=== PATIENT | female | born 1965 | race Caucasian/White ===

== ENCOUNTER 2017-10-26 10:00 | Outpatient (RCR) | payer OTHER, SELFPAY ==
--- NOTE | 2017-10-19 15:06 | HP.PTEVAL_ITS ---
Patient's Visit Information DIANNA SENIOR is a 52 year old F referred to Physical Therapy by Irving Claudio with a diagnosis of Bilateral lateral epicondylitis and postural imbalance. Date of Evaluation: 10/19/17 Physical Therapist: Ashish Eagle - Visit Plan Frequency: 1-2x /Week Duration: 10 weeks Plan: Start with DFM to bilateral epicondyles, eccentric wrist extension, wrist extensor stretching, rhomboid/middle trapezius strengthening, pec stretching. May use US techniques to reduce inflammation. - Subjective Subjective: Pt. is here today for her initial evaluation with diagnosis of bilateral lateral epicondalitis and postural imbalance. 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 Pt. reports no mechanism of injury. She reports having R elbow pain for ~3-4 years, but L elbow started ~3 weeks ago. She thinks that her L elbow may have started after painting a room in her house 3-4 weeks ago. Pt. reports not completing any exercises, except a few days she trialled her exercises given to her by her physicain. Pt. reports being tender to touch, increased pain with typing and with lifting. Pt. reports only decreased pain is with rest. Pt. does not report increased pain while sleeping, but does have slight difficuly falling asleep. She denies N/T and has not had any imaging. Pt. is hopeful to reduce symptoms in order to get back to all work and recreational activities without limitations. - Pain L elbow Pain Intensity (Out of 10): 4 Pain Intensity Range: 2, 6 R elbow Pain Intensity (Out of 10): 2 Pain Intensity Range: 1, 3 - Objective POSTURE: Pt. has slight FH positioning with rounded shoulders. Pt. is able to improve with VC/TCing. Pt. has normal lumbar lordosis in stance. B shoulders slightly internally rotated. PALPATION: Pt. has increased tenderness at bilateral lateral epicondyles, L worse than R. pt. has no ulnar groove pain. NO pain at UCL. Pt. has visible edema or increased heat. NEUROLOGICAL: Pt. has normal sensation to light and sharp touch of bilateral uEs. Pt. denies N/T. Pt. has 2+ bilateral biceps and triceps DTR. Pt. has no upper limb tension noted bilaterally. ROM: PT. has full shoulder and elbow ROM bilaterally wthout increase in symptoms. CERVICAL- flexion min loss mild increase NW at CT junction , ext nil/min loss NE, rotation min/nil loss NE, SB min/nil loss NE. Pt. has increased symptoms with wrist active extension and with passive wrist flexion. MMT: RUE- wrist- ext 5/5 mild increase NW, flexion 5/5; elbow- 5/5 througout NE , shoulder- flexon 5/5, ext 5/5, abd 4+/5, ER 4+/5, IR 5/5. LUE- wrist- ext 4+/ 5 increase NW, flexion 5/5; elbow 5/5 throughout without increase in symptoms; shoulder- flexion 5/5, abd 5-/5, ext 5/5, ER 4+/5, IR 5/5. Pt. has decreased mid trap/rhomboid strength. - Goals Goal 1:: Pt. to be I with HEP. Goal Time Frame: 4-6 Weeks Goal 2:: Pt. to have decrease pain in B elbows to 0-1/10 with all typing, lifting and work related activities. Goal Time Frame: 4-6 Weeks Goal 3:: Pt. to increased strength of bilateral mid trap and rhomboids to increase posture in sitting and standing. Goal Time Frame: 4-6 Weeks Goal 4:: Pt. to have increased wrist extensor strength by 1/2 grade bilaterally. Goal Time Frame: 4-6 Weeks - Rehabilitation Potential Physical Therapy Diagnosis: Pt. has signs and symptoms consistent with bilateral lateral epicondylitis. Pt. has poor posture, crossed pattern with weakness in scpaular musculature and tigtness in pec/chest and suboccipitals. Pt. would benefit from PT to increase wrist extensor strength, decrease pain, and increase postural strength. Rehabilitation Potential: Good - Anticipated Interventions Patient/Client Instruction: Educate patient on: Condition, Plan of Care, Risk Factors, Benefits of Fitness Program For the Purpose of:: To improve safety, To improve health and function, To foster healthy habits, To improve decision making, To facilitate caregiver knowledge, To improve self management, To prevent re-injury Therapeutic Exercise to Include: Strength training, Power training, Postural training, Flexibilty training, Passive ROM, Active ROM, Scapular Strength/ Stabilization For the Purpose of:: To decrease pain, To increase ROM, To improve nutrient delivery to tissue, To increase oxygenation perfusion, To improve muscle performance and motor function, To improve health of tissue, To decrease soft tissue restriction, To increase flexibility/ROM Ultrasound (thermal/non thermal): Yes For the Purpose of:: To decrease pain, To decrease swelling/inflammation, To increase ROM Thank you for the opportunity to evaluate your patient. For Medicare and Medicare HMO plans, please review the plan of care and approve it. It will need to be FAXED BACK to us at [phone] for Medicare purposes. Please let me know if there are questions or concerns regarding this plan of care. Physician Signature: Date:
--- NOTE | 2017-10-26 10:00 | DT_ITS ---
This patient was seen during an EMR downtime October 23, 2017 - October 30, 2017. This patient may have a combination of paper and electronic documentation or all paper documentation. All documentation is viewable within the e-chart portion of [employer] for each patient visit.
--- NOTE | 2018-03-01 11:42 | HP.PT.NRP ---
HP - Discharge Summary (1) - Patient Information DIANNA SENIOR was seen in my office for initial evaluation on 10/19/17. The following Plan of Care was established for this patient: Initial Frequency: 1-2x /Week Initial Duration: 10 weeks - Anticipated Interventions Patient/Client Instruction: Educate patient on: Condition, Plan of Care, Risk Factors, Benefits of Fitness Program For the Purpose of:: To improve safety, To improve health and function, To foster healthy habits, To improve decision making, To facilitate caregiver knowledge, To improve self management, To prevent re-injury Therapeutic Exercise to Include: Strength training, Power training, Postural training, Flexibilty training, Passive ROM, Active ROM, Scapular Strength/Stabilization For the Purpose of:: To decrease pain, To increase ROM, To improve nutrient delivery to tissue, To increase oxygenation perfusion, To improve muscle performance and motor function, To improve health of tissue, To decrease soft tissue restriction, To increase flexibility/ROM Ultrasound (thermal/non thermal): Yes For the Purpose of:: To decrease pain, To decrease swelling/inflammation, To increase ROM This patient was last seen in our office 10/26/17. Pertinent comments regarding their Physical therapy will appear below: Pt. was seen for her B elbow pain. Pt. was treated with postural strengtheing, eccentric wrist strengthening, modalities and stretching. Pt. was seen for 4 visits, but then was [place]in[place] out [place] the [place] 6 [place]. Pt. was having positive gains. Pt. was educated on proper stretching and exericses for her HEP. Pt. will be DC from PT at this point in time. At this point I will be discontinuing this patient from physical therapy. I would be happy to see this patient again in the future if found appropriate by the physician. Thank you! Ashish Eagle
== END 2017-10-26 19:00 | disposition home or self-care (01) ==
LOC: PT 10:00
PROVIDERS: Family Provider Family Medicine; PCP Family Medicine; Visit Provider Family Medicine
DX: M77.12 Lateral epicondylitis, left elbow (principal); M77.11 Lateral epicondylitis, right elbow; R29.3 Abnormal posture
CPT/HCPCS: 97035; 97110; 97162

== ENCOUNTER → 2018-03-23 09:25 | Outpatient (CLI) | payer OTHER, SELFPAY ==
[2018-03-23 12:24] LABS: Absolute Lymphocyte Count 1.31 X10^3/ul (0.83-4.51); Absolute Neutrophil Count 3.8 X10^3/uL (2.0-7.7); Basophil# 0.02 X10^3/uL; Basophil% 0.3 % (0-1); Eosinophil# 0.13 X10^3/uL; Eosinophils% 2.3 % (0-5); Hematocrit 39.6 % (37-47); Hemoglobin 13.5 g/dl (12.0-15.0); Lymphocyte # 1.31 X10^3/ul (4.0); Lymphocyte % 22.9 % (19-41); Mean Corp Hgb Conc 34.1 g/gl (32-36); Mean Corpuscular Hgb 32.8 pg (27.0-32.0); Mean Corpuscular Volume 96.1 fL (81-99); Mean Platelet Vol. 10.2 fl (6.2-12.0); Monocyte# 0.43 X10^3/uL; Monocyte% 7.5 % (0-10); Neutrophil # 3.82 X10^3/uL (2.7-7.7); Neutrophil % 66.8 % (47-70); Platelet Count 319 K/mm3 (150-450); RBC Distribution Width CV 12.3 % (11.6-14.6); RBC Distribution Width SD 42.1 fl (35.1-43.9); Red Blood Count 4.12 M/mm3 (4.2-5.4); White Blood Count 5.7 K/mm3 (4.4-11.0)
[2018-03-23 12:38] LABS: POSITIVE COUNT NO; POSITIVE DIFFERENTIAL NO; POSITIVE MORPHOLOGY NO
[2018-03-23 12:51] LABS: AST(SGOT) 11 U/L (15-37); Alanine Aminotransfer ALT/SGPT 21 U/L (13-56); Albumin, Serum 3.8 g/dL (3.2-5.0); Alkaline Phosphatase 59 U/L (45-117); Anion Gap 8 (5-15); BUN 12 mg/dL (7-18); BUN/Creat Ratio 13.8 RATIO (10-20); Calcium,Total 8.5 mg/dL (8.5-10.1); Chloride 105 mmol/L (98-107); Cholesterol 194 mg/dL (200); Creatinine, Serum 0.87 mg/dL (0.55-1.02); EST Glomerular Filtration Rate 73 mL/min (>60); Est Glom Filt Rate - Afr Amer 88 mL/min (>60); Globulin 3.8 g/dL (2.2-4.2); Glucose 93 mg/dL (74-106); High Density Lipoprotein 67 mg/dL; Potassium 4.1 mmol/L (3.5-5.1); Protein, Total 7.6 g/dL (6.4-8.2); Sodium Level 138 mmol/L (136-145); Thyroid Stim Hormone (TSH) 0.86 uIU/mL (0.358-3.74); Triglycerides 68 mg/dL; Very Low Density Lipoprotein 14 mg/dL (5-40)
== END ==
PROVIDERS: Family Provider Family Medicine; PCP Family Medicine; Visit Provider Family Medicine
DX: Z00.00 Encounter for general adult medical examination without abnormal findings (principal); G44.229 Chronic tension-type headache, not intractable; Z86.32 Personal history of gestational diabetes
CPT/HCPCS: 36415; 80053; 80061; 84443; 85025

== ENCOUNTER 2018-04-04 07:26 | Day surgery (SDC) | payer OTHER, SELFPAY ==
[2018-04-04 07:50] VITALS: BP 127/93; PULSE 74; RESP 14; TEMP 37.3; O2SAT 99; BMI 25.4
[2018-04-04 07:55] LABS: Internal QC Validated? YES +Cl - CLEAR BKGD; Pregnancy, Urine Negative Negative
--- NOTE | 2018-04-04 08:26 | H&P.OPEN ---
History of Present Illness Date of Admission: 04/04/18 The patient is a 53 year old F presents for screening colonoscopy. Patient admits to bowel movements daily denies any blood. Denies any chronic abdominal pain. Denies any family history of colon cancer. Denies previous colonoscopy Past Medical/Surgical History - Planned Operation Planned Operative Procedure/s: colonoscopy Date of Operative Procedure: 03/19/18 Permit Signed: No S.O.S: No Is This Patient Having a Total Joint: No - Previous Hospitalizations/Surgeries HX Hospitalizations: Yes HX of Surgeries: wisdom teeth extraction. colonoscopy 2018 Any Problems With Anesthesia: No You/Your Family Experience Fever (Hyperthermia) With Anes: No Cholinesterase deficiency: No - Cardiovascular Hx Chest Pain within Last 2 months: No Hx of Irregular Heartbeat and/or Afib: No Hx Heart Attack: No Hx Congestive Heart Failure: No Hx Rheumatic Fever: No Hx Hypertension: No Pacemaker Form Completed by Physician and on Chart: No Hx Cardiac Catheterization: No Hx Cardiac Surgery/Stents/Etc.: No Hx Stress Test: No HX Edema: No Hx Pain in Legs when Walking/Leg Cramps: No - Respiratory Chronic Cough: No HX of Shortness of Breath: No Hoarseness: No Hx Chronic Obstructive Pulmonary Disease (COPD): No Hx Asthma: No Hx Emphysema: No Hx Sleep Apnea: No Hx Oxygen Use at Home: No Hx Respiratory Tract Infection/Cold (presently): No Do You Snore Loudly (louder than talking or can be heard): No Do You Often Feel Tired/ Fatigued/ Sleepy Dring Daytime?: No Has Anyone Observed You Stop Breathing During Sleep?: No Result (for STOP score): Negative Hx Smoking: Yes - quit 25yrs ago Smoking Status: Former smoker - Gastrointestinal Hx Gastroesophageal Reflux: No Hx Gastrointestinal Disorders: No Hx Gastrointestinal Bleed: No Hx Ulcer: No Hx Hiatal Hernia: No Difficulty Chewing/Swallowing: No Recent Onset of Swallowing Problems: No Special diet followed at home: No Hx Unplanned Weight Loss of 20#: No HX Unplanned Weight Gain of 20#: No - Neurological Hx Seizures: No HX Syncope/Blackout Spells/Unconsciousness: No Hx CVA/Stroke: No Hx Transient Ischemic Attacks (TIA): No Hx Multiple Sclerosis: No Hx Parkinson's Disease: No Hx Head/Neck Injury: No Hx Headaches: Yes - tension RICHARDSON x6mos Hx Back Injury/Pain: No Recent Onset of Speech Difficulty: No Restless Legs: No - Blood Disorder Hx Leukemia: No Bleeding Tendencies: No Hx Deep Vein Thrombosis: No Hx High Cholesterol: No Blood Transmitted Disease: No Hx Hepatitis: No Hx Cirrhosis: No Hx Anemia: No Hx Blood Disorders: No - Reproduction : No Are You Post Menopause: No - Genitourinary Hx Renal Disease: No Hx Dialysis: No - Musculoskeletal Hx Arthritis: No Hx Rheumatoid Arthritis: No Hx Gout: No Recent Onset of an Orthopedic Problem: No - Endocrine Hx Diabetes: No Thyroid Disease: No Hx Steroid Therapy: Yes - prednisone tablets 02/2018 - Psycho/Social Hx Substance Use: No Hx Alcohol Use: No Hx Anxiety: No Hx Depression: No Mental Illness: No Hx Dementia: No - Miscellaneous Hx Cancer: No Recent Exposure to Contagious Disease: No Active MRSA: No Hx of C-Diff: No Any Loose Teeth: No Additional information pertinent to anesthesia:: none Allergies No Known Allergies Allergy (Verified 04/04/18 07:49) - Discharge Is Pt Admitted From a [facility], or a Assisted: No Who Depends On You At Home: lives with Who Could Help: After D/C, Where Do you Plan to Go: Return Home - Physical Exam General: Alert, Oriented x3, Cooperative, No apparent distress HEENT: Atraumatic Lungs: Normal air movement Cardiovascular: Regular rate Abdomen: Soft, Non Tender - No peritoneal signs, Non-Distended Extremities: No clubbing, No cyanosis, No edema Neurological: Cranial nerves II-XII grossly intact Psych/Mental Status: Normal Affect Vital Signs Temp Pulse Resp BP Pulse Ox 99.1 F 74 14 127/93 H 99 04/04/18 07:50 04/04/18 07:50 04/04/18 07:50 04/04/18 07:50 04/04/18 07:50 Oxygen Delivery Method Room Air Weight: 167 lb 8.821 oz Body Mass Index (BMI) 25.4 Laboratory Tests Past 24 Hrs 04/04/18 07:38 Urine Test Negative Assessment/Plan 53-year-old female for screening colonoscopy Surgery Risks - Colonoscopy I discussed with the patient the risks of the procedure: Yes Risks Include but are not Limited To: Risks include but are not limited to: Bleeding, perforation requiring further surgery, inability to complete colonoscopy requiring barium enema. Patient had no further questions at this time
--- NOTE | 2018-04-04 08:30 | COLBX_PTH ---
PATIENT: DIANNA SENIOR LOC: EN U#:[id number] AGE/SX: 53/F ROOM: RE04/04/[address]: Dr. Ariane Ren MD : 1965 BED: DIS: 04/04/2018 SPEC #: [id number] RECD: 04/04/18 11:33 STATUS: VANESSA GRUPO #: [id number] AVTAR: 04/04/18 08:[address]: Ariane Ren DEPT: SURGICAL PATHOLOGY RECD BY: Tree Reynolds ENTERED: 04/04/18 12:50 SP TYPE: COLON BX OTHR DR: MD Dr. Angelica Marquez MD Tissues: Cecum, NOS Procedures: Surgery Specimen Level IV HEADER OPERATION: Colonoscopy (MAC) PRE-OP DIAGNOSIS: Screening TISSUE SUBMITTED: Cecal polyp biopsy MICROSCOPIC DIAGNOSIS Cecal polyp, biopsy: Fragments of hyperplastic polyp. Mild melanosis coli. AM:demetri 11/15/18 MICROSCOPIC DESCRIPTION Slides are reviewed. GROSS DESCRIPTION Received is one container labeled with the patient name and designated cecal polyp biopsy. The specimen consists of multiple irregular fragments of light arteaga soft tissue that in aggregate measure 1.5 x 0.5 x 0.1 cm. The specimen is totally submitted in one cassette. / SJ:sp 04/04/18 TC: 5 CPT: 50587
[2018-04-04 09:05] VITALS: BP 127/93; BP 136/86; PULSE 82; RESP 16; TEMP 36.8; O2SAT 100
--- NOTE | 2018-04-04 09:08 | OP.ENDO_ITS ---
Patient Name: Isaura Ballesteros Procedure Date: 04/04/2018 8:25 AM Date of : 1965 Age: 53 Procedure: Colonoscopy Indications: Screening for colorectal malignant neoplasm Providers: Ariane Ren MD Referring MD: Ariane Ren MD Medicines: Monitored Anesthesia Care Patient Profile: This is a 53 year old female. Last Colonoscopy: none. The patient's first colonoscopy is today. Complications: No immediate complications. Procedure: Pre-Anesthesia Assessment: - Prior to the procedure, a History and Physical was performed, and patient medications and allergies were reviewed. The patient's tolerance of previous anesthesia was also reviewed. The risks and benefits of the procedure and the sedation options and risks were discussed with the patient. All questions were answered, and informed consent was obtained. Prior Anticoagulants: The patient has taken no previous anticoagulant or antiplatelet agents. ASA Grade Assessment: II - A patient with mild systemic disease. After reviewing the risks and benefits, the patient was deemed in satisfactory condition to undergo the procedure. After I obtained informed consent, the scope was passed under direct vision. Throughout the procedure, the patient's blood pressure, pulse, and oxygen saturations were monitored continuously. The Colonoscope was introduced through the anus and advanced to the cecum, identified by the appendiceal orifice, ileocecal valve and palpation. The colonoscopy was performed without difficulty. The patient tolerated the procedure well. The quality of the bowel preparation was good. Scope In: 8:35:41 AM Scope Withdrawal Time 0 hours 16 minutes 16 seconds Scope Out: 9:02:11 AM Total Procedure Duration Time 0 hours 26 minutes 30 seconds Findings: The perianal and digital rectal examinations were normal. A 4 to 7 mm polyp was found in the cecum. The polyp was sessile. The polyp was removed with a cold biopsy forceps. Resection and retrieval were complete. The exam was otherwise without abnormality on direct and retroflexion views. Impression: - One 4 to 7 mm polyp in the cecum, removed with a cold biopsy forceps. Resected and retrieved. - The examination was otherwise normal on direct and retroflexion views. Recommendation: - Discharge patient to home. - Continue present medications. - Await pathology results. - Repeat colonoscopy in 3 - 5 years for surveillance based on pathology results. Procedure Code(s): --- Professional --- 50672, Colonoscopy, flexible; with biopsy, single or multiple Diagnosis Code(s): --- Professional --- Z12.11, Encounter for screening for malignant neoplasm of colon D12.0, Benign neoplasm of cecum CPT copyright 2017 [employer]. All rights reserved. The codes documented in this report are preliminary and upon shuttle filler review may be revised to meet current compliance requirements. MD Ariane Guerrero MD 04/04/2018 9:07:57 AM This report has been signed electronically. Number of Addenda: 0 Note Initiated On: 04/04/2018 8:25 AM
[2018-04-04 09:10] VITALS: BP 127/93; BP 138/87; PULSE 71; RESP 16; O2SAT 100
[2018-04-04 09:15] VITALS: BP 127/93; BP 139/90; PULSE 66; RESP 16; O2SAT 100
[2018-04-04 09:20] VITALS: BP 120/82; BP 127/93; PULSE 55; RESP 16; TEMP 36.6; O2SAT 100
[2018-04-04 10:03] VITALS: BP 127/93
== END 2018-04-04 10:04 | disposition home or self-care (01) ==
LOC: EN 07:26 → AC 07:27
PROVIDERS: Anesthesiology; Family Provider Family Medicine; PCP Family Medicine; Referring Provider Surgery; Visit Provider Surgery
PROC: 0DJD8ZZ Inspection of Lower Intestinal Tract, Via Natural or Artificial Opening Endoscopic (ICD-10-PCS; CPT 45378; principal; 2018-04-04 08:25)
DX: Z12.11 Encounter for screening for malignant neoplasm of colon (principal); D12.0 Benign neoplasm of cecum; Z87.891 Personal history of nicotine dependence
CPT/HCPCS: 45380; 81025; 88305; J7120

== ENCOUNTER 2018-04-13 10:00 | Outpatient (RCR) | payer OTHER, SELFPAY ==
--- NOTE | 2018-03-20 15:11 | HP.OTEVAL ---
Patient's Visit Information DIANNA SENIOR is a 53 year old F, referred to Occupational Therapy by SWAPNA APPLE, with a diagnosis of Bilateral Lateral Epicondylitis; L sided CTS. Date of Evaluation: 03/20/18 Occupational Therapist: Michelle Morales - Subjective Subjective: Arrived and noted that has been ongoing issue for about 6 months. She noted that B elbows hurt and does not believe pain is coming from neck down but elbow down. Has previously been treated for cervical related discomfort by PT. Further explained has EKG appointment in [place] on . She noted she practice yoga and is worried this is from yoga routine. Does not want to give up yoga. - Pain Left Elbow 2 Pain Intensity Range: 2, 5 Right Elbow 1 Pain Intensity Range: 0, 1, 3 - ROM Elbow: Flexion R 5-120, L 0-109 Forearm: WFL MP: WFL PIP: WFL DIP: WFL - Strength Environmental Services Associate: flexed position: R 79, L 30 lbs; extended R 28, L 9 lbs Lateral Pinch: R 18, L 18 lbs Tripod Pinch: R 12, L 8 lbs Tip-to-Tip Pinch: R 9, L 12 lbs Strength Comments: Increased pain with with gripping. - Sensation Thumb: R 2.83 L 2.83 Index: R 2.83 L 2.83 Middle: R 2.83 L 2.83 Ring: R 2.83 L 2.83 Little: R 3.22 L 3.22 Stereognosis: Normal - Right, Normal - Left Proprioception: Normal - Right, Normal - Left - In-Hand Manipulation Finger to Palm Translation: Normal - Right, Mild - Left Palm to Finger Translation: Mild - Right, Normal - Left Shift: Normal - Right, Mild - Right, Normal - Left Rotation: Normal - Right, Normal - Left - Special Tests Phalen's (Carpal Tunnel): Positive Tinel's: Positive Median Nerve Compression Test: negative - DASH-Disabilities of Arm, Shoulder& Hand DASH Sum: 74 - Goals Goal:: Dianna to 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 Goal:: Dianna to have no more than 1/10 pain with functional tasks with use of compensations to help decrease pain 4/5 trials 80% of the time by d/c. Goal:: Dianna to be (I) to complete ergonomic training and body mechanics to promote increased alignment and decreased risk of further injury to promote returning to meaningful actvities (e.g. yoga) by d/c. Goal:: Dianna to be (I) to complete all ADL/IADls including yardwork 4/5 trials 805 of the time at PLOF by d/c. Goal:: Dianna to be mod I to complete HEP to promote increased pain management, ROM, and strength as appropriate 4/5 trials 80% of the time to help decrease pain and retrun to PLOF for all ADl/IADls by d/c. - Rehabilitation General Assessment: Dianna completed OT evaluation of this date of 03/20/18. Symptoms have been ongoing for last 6 months as has previous see PT for 2x sessions to try and alleviate symptoms. Increased pain and tightness throughout forearm over ECRB and lateral epicondyle. Decreased ROM, strength, and decrease general functional use of B UE. OT to work on ergonomic training, pain management, and strength when appropriate. Additional OT to work on increasing functional use of B elbows to promote increased ROM and strength for ADL/IADls. Rehabilitation Potential: Good - Anticipated Interventions Anticipated Interventions: A/AAROM/PROM, Strengthening, Triggerpoint Release, Modalities, Orthoses, Joint Protection/Energy Conservation, Ergonomic Education, Fine Motor Coord/Chris, ADL Training, Caregiver Training, Home Program - Visit Plan Frequency: 2-3x /Week Duration: 4 Weeks General Plan: Ot to work on PROM/AAROM/AROM, pain management, HEP, strengthening, ergonomic education and body mechanics .Modalities to be used a pain relief of ultrasound and TENS. TEXT: Thank you for the opportunity to evaluate your patient. For Medicare and Medicare HMO plans, please review the plan of care and approve it. It will need to be FAXED BACK to us at [phone] for Medicare purposes. Please let me know if there are questions or concerns regarding this plan of care. Physician Signature: Date:
--- NOTE | 2018-04-13 13:43 | HP.OTREVAL ---
SWAPNA APPLE, It has been my pleasure to treat DIANNA SENIOR over the last 10 visits for Bilateral Lateral Epicondylitis; L sided CTS. Please see the progress note below for an update on the occupational therapy plan of care! Subjective: Arrived and noted that has been cooking last few days and noted has been in and out brace. I probably haven't worn the brace like I should. Feels she has made about 90% improvement. Objective/Function: Completed reassessment on this date of 04/13/18. Completed measurements and results as follows: ROM: -elbow: R 15-123, L 0-125 degrees. No hyperextension noted at this time. Completed strength testing: Coin Machine Servicer Repairer in flexed position: R 80, L 65 lbs -2/10 pain in l UE only. Coin Machine Servicer Repairer in extension: R 64 , L 43 lbs -2/10 pain in l UE only. Lateral: R 19, L 19 lbs -2/10 pain in l UE only. Tripod: R 17, L 16 lbs -2/10 pain in l UE only. Pincer: R 10, L 9 lbs -2/10 pain in l UE only. Completed sensation testing: R 2nd 2.83, 3rd 2.83, 4th 2.83, 5th 2.83, thumb 2.83. L 2nd 2.83, 3rd 3.22, 4th 2.83, 5th 2.83, thumb 3.22. Completed Phalen?s and reverse Phalen?s and tested positive which indicated some starts of the potential of CTS. She has progressed since initial evaluation and pain is reduce with still present at times with gripping related tasks. Plan Frequency: 1x/Week Duration: 2-4 Weeks Visits in this POC: 1 Plan: continue POC for 1x follow up when back from [facility]. Pain has been reduced but remains off/on with gripping related tasks. She has been provided isometric related exercises for trunk and shoulder, in conjunction with additional HEP program for to promote starting to increased strengthening UEB elbows, to promote strengthening and regaining strength prior to elbow pain starting 6+ months ago . She is to continue prior HEP as instructed. She does appear to have some acute starts of CTS and she exhibits positive Phalen?s sign and reverse Phalen?s signs with tingling in daniel three digits. Negative response for Tinels. 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 Additionally, she has been educated on adaptive yoga techniques. She has purchased a thicker mat, is to complete adaptive techniques to engage more flexors than extensors of forearm, and is to avoid straight arm plank with trialing forearm based plank only as tolerated. Generally she is progressing well. The next follow up will be after her return from vacation in [facility] with focus on to adjustment of HEP. After next follow up she will likely be d/c'd and set up with H& W program through facility. 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 - MEANT Goal:: Dianna to have no more than 1/10 pain with functional tasks with use of compensations to help decrease pain 4/5 trials 80% of the time by d/c. Goal:: Dianna to be (I) to complete ergonomic training and body mechanics to promote increased alignment and decreased risk of further injury to promote returning to meaningful actvities (e.g. yoga) by d/c. Goal:: Dianna to be (I) to complete all ADL/IADls including yardwork 4/5 trials 805 of the time at PLOF by d/c. Goal:: Dianna to be mod I to complete HEP to promote increased pain management, ROM, and strength as appropriate 4/5 trials 80% of the time to help decrease pain and retrun to PLOF for all ADl/IADls by d/c. Anticipated Interventions Anticipated Interventions: A/AAROM/PROM, Strengthening, Triggerpoint Release, Modalities, Orthoses, Joint Protection/Energy Conservation, Ergonomic Education, Fine Motor Coord/Chris, ADL Training, Caregiver Training, Home Program Please do not hesitate to contact me at [phone] by phone or if you have questions or concerns regarding this new plan of care! Sincerely, Michelle Morales
--- NOTE | 2018-05-17 14:55 | HP.OTDCSUM ---
HP - OT D/C Summary It has been my pleasure to treat DIANNA SENIOR under orders from SWAPNA APPLE, for the diagnosis of Bilateral Lateral Epicondylitis; L sided CTS for a total of 10 visit(s). Please see the following information for a summary of their discharge status. - Overall Improvement % Improvement: 90 - Objective Objective/Function: Completed reassessment on this date of 04/13/18. Completed measurements and results as follows: ROM: -elbow: R 15-123, L 0-125 degrees. No hyperextension noted at this time. Completed strength testing: [employer] Machine Tender in flexed position: R 80, L 65 lbs -2/10 pain in l UE only. [employer] Machine Tender in extension: R 64 , L 43 lbs -2/10 pain in l UE only. Lateral: R 19, L 19 lbs -2/10 pain in l UE only. Tripod: R 17, L 16 lbs -2/10 pain in l UE only. Pincer: R 10, L 9 lbs -2/10 pain in l UE only. Completed sensation testing: R 2nd 2.83, 3rd 2.83, 4th 2.83, 5th 2.83, thumb 2.83. L 2nd 2.83, 3rd 3.22, 4th 2.83, 5th 2.83, thumb 3.22. Completed Phalen?s and reverse Phalen?s and tested positive which indicated some starts of the potential of CTS. She has progressed since initial evaluation and pain is reduce with still present at times with gripping related tasks. - Goals Patient Goals: Regain Mobility, Regain Strength, Decrease Pain, Decrease Swelling/Stiffness, Improve Fine Motor Skills, Use Hand/Wrist/Arm Normally Again, Sleep Better, Decrease Tingling/Numbness, Be More Independent in ADLS, Resume Former Household Responsibilities (Cooking,Cleaning,Yard, etc.), Resume Hobbies Goal:: Dianna to increased B mc kay stitcher strength in both flexed and extended positions by 15- 20 lbs to help promote stability and decrease pain of B elbows by time of d/c. - MEANT Goal:: Dianna to have no more than 1/10 pain with functional tasks with use of compensations to help decrease pain 4/5 trials 80% of the time by d/c. Goal:: Dianna to be (I) to complete ergonomic training and body mechanics to promote increased alignment and decreased risk of further injury to promote returning to meaningful actvities (e.g. yoga) by d/c. Goal:: Dianna to be (I) to complete all ADL/IADls including yardwork 4/5 trials 805 of the time at PLOF by d/c. Goal:: Dianna to be mod I to complete HEP to promote increased pain management, ROM, and strength as appropriate 4/5 trials 80% of the time to help decrease pain and retrun to PLOF for all ADl/IADls by d/c. - Plan Plan: Never returned for follow -up post return from [facility]. Attempted to call but unable to get thorugh and will be discharged at this time. - D/C Information If there are questions or concerns regarding this patient's occupational therapy, please fell free to call me at [phone]. Thank you for the referral of this patient. Sincerely, Michelle Morales
== END 2018-04-13 19:00 | disposition home or self-care (01) ==
LOC: OT 10:00
PROVIDERS: Family Provider Family Medicine; PCP Family Medicine
DX: M77.11 Lateral epicondylitis, right elbow (principal); M77.12 Lateral epicondylitis, left elbow; G56.02 Carpal tunnel syndrome, left upper limb
CPT/HCPCS: 97035; 97110; 97140; 97166; 97168; 97530

== ENCOUNTER → 2018-06-22 09:32 | Outpatient (CLI) | payer OTHER, SELFPAY ==
--- NOTE | 2018-06-22 10:00 | MRI_ITS ---
STUDY: MRI BRAIN WITH AND WITHOUT CONTRAST (ATTENTION INTERNAL AUDITORY CANALS - I.A.C.'s) REASON FOR EXAM: Female, 53 years old. Dizziness. Right ear fullness. TECHNIQUE: Standardized multiplanar fat and water weighted pulse sequences were obtained. 8 ml of Gadavist contrast material was administered intravenously for the contrast portion of the examination. COMPARISON: None. FINDINGS: Normal bilateral temporal bones. Normal bilateral internal auditory canals. There is no demonstrated intracanalicular or cisternal vestibular schwannoma (acoustic neuroma). There is no enhancement of the bilateral VIIth or VIIIth cranial nerves. Normal bilateral cochlea, vestibules and semicircular canals. Normal size of the ventricles and extra-axial spaces for the patient's age. Normal white matter tracts of the supratentorial brain. Normal bilateral basal ganglia. Normal thalami. Normal flow voids within the major intracranial circulation suggesting patency by spin echo criteria. Normal venous enhancement. There is no enhancing intra-axial or extra-axial abnormality. There is no extra-axial fluid accumulation. Normal sella turcica, pituitary gland, infundibular stalk, optic chiasm and hypothalamus. Normal tectal plate and pineal gland. Normal midbrain, reece and medulla. Normal cerebellum. Normal basal cisterns. No demonstrated orbital abnormality, within the constraints of a routine brain study. Normal visualized paranasal sinuses. Normal calvarium and skull base. Normal visualized soft tissue structures. Normal visualized upper cervical spine. MRI/Brain W/WO Contrast IMPRESSION: Normal unenhanced and enhanced MRI of the bilateral internal auditory canals (I.A.C's). Electronically Signed: Naresh Benjamin MD at 15:33 EST , Service support ,
== END ==
PROVIDERS: Family Provider Family Medicine; PCP Family Medicine; Referring Provider Otolaryngology; Visit Provider Otolaryngology
DX: R42 Dizziness and giddiness (principal)
CPT/HCPCS: 70553; A9585

== ENCOUNTER → 2018-12-28 12:36 | Outpatient (CLI) | payer OTHER, SELFPAY ==
--- NOTE | 2018-12-28 12:39 | RAD_ITS ---
STUDY: X-RAY - LEFT FOOT CLINICAL: Female, 53 years old. Foot pain TECHNIQUE: 3 view(s) of the foot. COMPARISON: None. FINDINGS: Normal talus, calcaneus, and tarsal bones. Normal visualized subtalar, talonavicular, calcaneocuboid, tarsal and tarsometatarsal articulations. Normal metatarsi. Normal metatarsophalangeal joint of the great toe. Normal tibial and fibular sesamoid bones. Normal interphalangeal joint of the great toe. Normal phalanges of the great toe. Normal second through fifth metatarsophalangeal joints. Normal interphalangeal joints and phalanges of the lesser toes. The soft tissue structures are unremarkable. RAD/Foot min 3 Views IMPRESSION: Normal x-ray examination of the foot. Electronically Signed: Tree Valdez MD at 13:02 EDT Tel , Service support ,
--- NOTE | 2018-12-28 12:39 | RAD_ITS ---
STUDY: X-RAY - LEFT HAND REASON FOR EXAM: Female, 53 years old. Thumb pain TECHNIQUE: 3 view(s) of the hand. COMPARISON: None. FINDINGS: Normal radiocarpal articulation. Normal distal radioulnar joint. Normal visualized carpal bones. Normal carpal articulations Normal carpometacarpal articulation of the thumb. Normal second through fifth carpometacarpal joints. Normal metacarpi. Normal metacarpophalangeal joint of the thumb. Normal interphalangeal joint of the thumb. Normal proximal and distal phalanges of the thumb. Normal metacarpophalangeal joints of the second through fifth fingers. Normal proximal and distal interphalangeal joints of the second through fifth fingers. Normal phalanges of the second through fifth fingers. The soft tissue structures are unremarkable. RAD/Hand Min 3 Views IMPRESSION: Normal x-ray examination of the hand. Electronically Signed: Tree Valdez MD at 13:03 EDT Tel , Service support ,
== END ==
PROVIDERS: Family Provider Family Medicine; PCP Family Medicine; Referring Provider Family Medicine; Visit Provider Family Medicine
DX: M79.672 Pain in left foot (principal); M79.645 Pain in left finger(s)
CPT/HCPCS: 73130; 73630

== ENCOUNTER → 2019-07-08 16:26 | Outpatient (CLI) | payer OTHER, SELFPAY ==
--- NOTE | 2019-07-08 16:28 | RAD_ITS ---
STUDY: X-RAY - LEFT ANKLE REASON FOR EXAM: Female, 54 years old. Injury to left ankle, tripped on the sidewalk x 1 week TECHNIQUE: 3 view(s) of the ankle. COMPARISON: July 08, 2010 FINDINGS: Normal visualized distal tibia and fibula. Normal medial and lateral malleoli. Normal tibiotalar articulation and ankle mortise. Normal visualized talus and calcaneus. The visualized subtalar, talonavicular, calcaneocuboid and tarsal articulations are normal. The soft tissue structures are unremarkable. RAD/Ankle min 3 Views IMPRESSION: No acute osseous injury. Electronically Signed: Addie Teran MD at 23:06 EST Tel , Service support ,
== END ==
PROVIDERS: PCP Family Medicine; Referring Provider Family Medicine; Visit Provider Family Medicine
DX: S93.402A Sprain of unspecified ligament of left ankle, initial encounter (principal)
CPT/HCPCS: 73610

== ENCOUNTER 2019-07-26 08:00 | Outpatient (RCR) | payer OTHER, SELFPAY ==
--- NOTE | 2019-07-18 10:55 | HP.PTEVAL_ITS ---
Patient's Visit Information DIANNA SENIOR is a 54 year old F referred to Physical Therapy by Des Ramsey MD with a diagnosis of LEFT ANKLE GRADE 2 SPRAIN. Date of Evaluation: 07/18/19 Physical Therapist: Collin Salmeron, PT, Cert MDT, OCS - Visit Plan Frequency: 1-2x /Week Duration: 4 Weeks Plan: PT INTERVENTION ANKLE STRENGTHENING,PROPRIOCEPTION,FUNCTION STRENGTHENING,FLEXABILTY CALF - Subjective Findings: This 54 y/o female presents to physical therapy with left ankle sprain. Patient injuried Fe twisted tripped on sidewalk and rollled ankle. Patient has had h/o ankle sprain.Patient had immediated pain with edema , used crutches . Didnt seen DR 1 week later. Patient was placed in boot. Today ,1st day palced in boot. Patient had x-rays -. Pain located lateral malleoli. Patient conts to walk with antalgic . Patient conts to have some swelling, Patient pain affects ADLS',job demnads and housework tasks. Patient ankle affects QOL and walking. 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 SOCIAL: single - Pain Left Ankle Pain Intensity (Out of 10): 2 Pain Intensity Range: 10 - Objective POSTURE: pes planus. EDEMA: mild effusion lateral malleoli. PALPATION: INTERMEDIATE mild. AROM: dorsiflexion 5 degrees,eversion 10 degrees,inversion 40 degrees,plantarflexion 70 degrees. MMT: ankle 4/5 anterior tibials,tin neous,posterior tibials, gastrocsoloues. PROPRIOCETION: 45sec. SPECIAL TEST: anterior 1+ laxity,talor tilt -,inversion stress test + - Goals Goal 1:: Patient improving with HEP. Goal Time Frame: 2-4 Weeks Goal 2:: Patient to decrease ankle symptoms by 80% or > to improve function. Goal Time Frame: 2-4 Weeks Goal 3:: Patient to improve proprioception symmtrical right = left improve gait Goal Time Frame: 6-8 Weeks Goal 4:: Patient improve LFES score by 5-8 points or > to improve QOL and function. Goal Time Frame: 2-4 Weeks - Rehabilitation Potential Physical Therapy Diagnosis: This patient twisted let ankle caused pain ,swelling and laxity with decrease proprioception ,which has been improving. Rehabilitation Potential: Good - Anticipated Interventions Patient/Client Instruction: Educate patient on: Condition, Plan of Care For the Purpose of:: To decrease pain, To increase ROM, To improve muscle performance and motor function, To improve ability to perform ADL's, To increase tolerance to activity/condition/position, To improve ability of physical actions for home/community/work/leisure, To improve gait and locomotor functions, To improve health of tissue, To decrease soft tissue restriction, To increase flexibility/ROM, To reduce risk of recurrence Therapeutic Exercise to Include: Strength training, Flexibilty training, Passive ROM, Active ROM For the Purpose of:: To decrease pain, To decrease swelling/inflammation, To increase ROM, To improve ability to perform ADL's, To increase tolerance to activity/condition/position, To improve ability of physical actions for home/community/work/leisure, To improve health of tissue, To decrease soft tissue restriction, To increase flexibility/ROM TENS: Yes IF ES: Yes Cryotherapy (ice pack, ice massage): Yes Thermo therapy (hot pack): Yes Ultrasound (thermal/non thermal): Yes For the Purpose of:: To decrease pain, To increase ROM, To improve nutrient delivery to tissue, To increase oxygenation perfusion, To improve health of tissue Thank you for the opportunity to evaluate your patient. For Medicare and Medicare HMO plans, please review the plan of care and approve it. It will need to be FAXED BACK to us at [phone] for Medicare purposes. For Medicare only, by signing this I certify the plan of care. Please let me know if there are questions or concerns regarding this plan of care. Physician Signature: Date:
--- NOTE | 2020-01-01 10:33 | HP.PT.NRP ---
DIANNA SENIOR was seen in my office for initial evaluation on 07/18/19. The following Plan of Care was established for this patient: Initial Frequency: 1-2x /Week Initial Duration: 4 Weeks Patient/Client Instruction: Educate patient on: Condition, Plan of Care For the Purpose of:: To decrease pain, To increase ROM, To improve muscle performance and motor function, To improve ability to perform ADL's, To increase tolerance to activity/condition/position, To improve ability of physical actions for home/community/work/leisure, To improve gait and locomotor functions, To improve health of tissue, To decrease soft tissue restriction, To increase flexibility/ROM, To reduce risk of recurrence Therapeutic Exercise to Include: Strength training, Flexibilty training, Passive ROM, Active ROM For the Purpose of:: To decrease pain, To decrease swelling/inflammation, To increase ROM, To improve ability to perform ADL's, To increase tolerance to activity/condition/position, To improve ability of physical actions for home/community/work/leisure, To improve health of tissue, To decrease soft tissue restriction, To increase flexibility/ROM TENS: Yes IF ES: Yes Cryotherapy (ice pack, ice massage): Yes Thermo therapy (hot pack): Yes Ultrasound (thermal/non thermal): Yes For the Purpose of:: To decrease pain, To increase ROM, To improve nutrient delivery to tissue, To increase oxygenation perfusion, To improve health of tissue This patient was last seen in our office . Pertinent comments regarding their Physical therapy will appear below: Patient seen for PT for grade ankle sprain for HEP,trengthening and proprioception thus is d/c doing well. At this point I will be discontinuing this patient from physical therapy. I would be happy to see this patient again in the future if found appropriate by the physician. Thank you! Collin Salmeron, PT, Cert MDT, OCS
== END 2019-07-26 17:00 | disposition home or self-care (01) ==
LOC: PT 08:00
PROVIDERS: PCP Family Medicine; Referring Provider Family Medicine; Visit Provider Family Medicine
DX: S93.402D Sprain of unspecified ligament of left ankle, subsequent encounter (principal)
CPT/HCPCS: 97110; 97162

== ENCOUNTER 2020-08-04 17:04 | Outpatient (RCR) | payer OTHER, SELFPAY ==
[2020-08-04] MEDS: COVID-19 VACC, MRNA(PFIZER)/PF 30 MCG/0.3 ML SYRINGE IM (15:14)
[2020-08-25] MEDS: COVID-19 VACC, MRNA(PFIZER)/PF 30 MCG/0.3 ML SYRINGE IM (15:14)
== END 2020-10-27 23:59 ==
LOC: IMMUN 17:04
PROVIDERS: PCP Internal Medicine; Referring Provider Family Medicine; Visit Provider Family Medicine
DX: Z23 Encounter for immunization (principal)
CPT/HCPCS: 0001A; 0002A; 91300

== ENCOUNTER → 2022-03-24 | Outpatient (CLI) | payer BC, SELFPAY ==
--- NOTE | 2022-03-24 09:01 | RAD_ITS ---
STUDY: X-RAY - LUMBAR SPINE REASON FOR EXAM: Female, 57 years old. Radiating low back pain TECHNIQUE: 4 view(s) of the lumbar spine were obtained. COMPARISON: None FINDINGS: There is straightening of the normal lumbar lordosis. There is no substantial scoliosis. There is a normal alignment of the vertebrae. There is multilevel endplate spondylosis of the lumbar vertebrae. 6 disc space narrowing with vacuum disc phenomenon at L4-5 and L5-S1. There is no demonstrated fracture. Retained stool throughout the colon RAD/L/S Spine Min 4 Views IMPRESSION: Degenerative changes in the lower lumbar spine, no demonstrated acute fracture or suspicious osseous lesion Electronically Signed: Harley Cee MD at 13:58 EDT ,
--- NOTE | 2022-03-24 09:01 | RAD_ITS ---
STUDY: X-RAY - PELVIS AND BILATERAL HIPS REASON FOR EXAM: Female, 57 years old. Pain, decreased range of motion TECHNIQUE: AP view of the pelvis.? 2 views of the right hip, and 2 views of the left hip were obtained. COMPARISON: None. FINDINGS: There is a non-specific bowel gas pattern. Normal visualized soft tissue structures. Normal bilateral iliac wings, sacroiliac joints and visualized sacrum. Normal bilateral superior and inferior pubic rami. Normal pubic symphysis. Normal bilateral ischial tuberosities. Normal visualized right femoral head. Normal right acetabulum. Normal right hip joint. Normal visualized left femoral head. Normal left acetabulum. Normal left hip joint. RAD/Hips B/L min 2 views w/ Pelvis IMPRESSION: Normal x-ray examination of the pelvis and bilateral hips. Electronically Signed: Harley Cee MD at 13:56 EDT ,
[2022-03-24 10:20] LABS: Absolute Neutrophil Count 2.9 X10^3/uL (2.0-7.7); Basophil# 0.05 X10^3/uL; Basophil% 1.1 % (0-1); Eosinophil# 0.11 X10^3/uL; Eosinophils% 2.4 % (0-5); Hematocrit 39.6 % (37-47); Hemoglobin 13.3 g/dL (12.0-15.0); Lymphocyte % 27.8 % (19-41); Mean Corp Hgb Conc 33.6 g/dL (32-36); Mean Corpuscular Hgb 33.1 pg (27.0-32.0); Mean Corpuscular Volume 98.5 fL (81-99); Mean Platelet Vol. 9.4 fl (6.2-12.0); Monocyte# 0.36 X10^3/uL; Monocyte% 7.7 % (0-10); NRBC Flagged by Analyzer 0 % (0-5); Neutrophil # 2.85 X10^3/uL (2.7-7.7); Neutrophil % 60.8 % (47-70); Platelet Count 299 K/mm3 (150-450); RBC Distribution Width CV 12.5 % (11.6-14.6); RBC Distribution Width SD 45.1 fl (35.1-43.9); Red Blood Count 4.02 M/mm3 (4.2-5.4); White Blood Count 4.7 K/mm3 (4.4-11.0)
[2022-03-24 10:51] LABS: Vitamin D,25 Hydroxy 27.7 ng/mL
[2022-03-24 11:01] LABS: CRP < 2.90 mg/L (0.0-3.0); Ferritin 57 ng/mL (8-252); Iron 70 ug/dL (50-170); Iron Binding Capacity,Total 282 ug/dL (250-450); Rheumatoid Factor < 10.0 IU/mL (<15)
[2022-03-24 15:13] LABS: Erythrocyte Sedimentation Rate 12 mm/hr (0-30)
[2022-03-26 18:47] LABS: ANTINUCLEAR ANTIBODIES DIRECT Negative (Negative)
== END | disposition home or self-care (01) ==
LOC: MTLAB 08:59
PROVIDERS: PCP Internal Medicine; Referring Provider Family Medicine; Visit Provider Family Medicine
DX: M54.9 Dorsalgia, unspecified (principal); M25.551 Pain in right hip; M25.552 Pain in left hip; M25.50 Pain in unspecified joint; Z83.49 Family history of other endocrine, nutritional and metabolic diseases
CPT/HCPCS: 36415; 72110; 73521; 82306; 82728; 83540; 83550; 84443; 85025; 85652; 86038; 86140; 86225; 86235; 86431

== ENCOUNTER 2022-07-28 09:30 | Outpatient (RCR) | payer BC, SELFPAY ==
--- NOTE | 2022-06-09 13:37 | HP.PTEVAL_ITS ---
Patient's Visit Information DIANNA SENIOR is a 57 year old F referred to Physical Therapy by Dr. Irving Claudio MD with a diagnosis of NECK PAIN, YUAN HIP PAIN, L HIP TIGHTNESS AND R SI JT PAIN.. Date of Evaluation: 06/09/22 Physical Therapist: Dunia Vogel PT, Cert MDT - Visit Plan Frequency: 1-2x /Week Duration: 16 VISITS Plan: *CHECK AUTH*. NECK US, E-STIM, MH. CONSIDER TRACTION. POSTURE CORRECTION/STRENGTHENING, INSTRUCTION IN APPROPRIATE BODY MECHANICS AND ACTIVITY MODIFICATIONS. YUAN UE ROM, STRETCHING AND STRENGTHENING. HEP INSTRUCTION. 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 Plays the [place] a couple hours a couple times a wk. Piano - rarely. Disability: NO. Present symptoms: (PATIENT REPORTS SHE IS HERE FOR HER NECK, YUAN SHLD'S, LOW BACK AND YUAN HIP PAIN BUT HER NECK/SHLDS ARE HER CHIEF CONCERN). NECK PAIN AND YUAN SHLD PAIN. PATIENT REPROTS SHE ALSO HAS PAIN IN HER HANDS AND FINGER. I FEEL LIKE MY SHOULDERS ARE KILLING ME CONSTANTLY. HEADACHES - DAILY TO WEEKLY (LESS SINCE STOPPED DRINKING ALCOHOL). H/O MIGRAINES. Present since: ABOUT 2 YEARS. Pain Scale: Worst - 5/10 Least - 2/10. Currently: 08/29. Commenced as a result of: NO APPARENT REASON BUT PATIENT REPORTS SHE THINKS IT IS FROM WORK. 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 Symptoms at onset: ACHING IN SHOULDERS. Worse: WORKING, PROLONGED SITTING AND LOOKING DOWN, LOOKING AT PHONE TOO LONG. MAYBE SWIMMING (ONCE A WK). Better: LAYING DOWN, TAKING DRUGS, MASSAGE. Disturbed sleep: NOT REALLY. Previous history/Previous treatment: NO NECK SURERY. NO SHLD SX. NO NECK OR SHLD INJECTIONS. TRIED NEEDLING AND ACCUPUNCTURE - TEMPORARY RELIEF. MASSAGE - TEMPORARY RELIEF. CHIROPRACTIC - TEMPORARY RELIEF (LAST VISIT WAS OVER A MONTH AGO). Dizziness: NO. Tinnitis: NO. Nausea: NO. Shortness of Breathe: NO. Difficulty Swollowing: NO. Gait: NO AD'S. NO FALLING. NO PROBLEMS WALKING. Accidents: NO. Unexplained weight loss: NO. Imaging: NONE THAT PATIENT CAN RE-CALL. PMH/Recent major surgery: H/O OF LOW BACK AND HIP PAIN. - Objective Sitting Posture/Standing Posture: MILD FH. MILD RSH'S. Active Correction of posture: NE OR MAYBE A LITTLE BETER. Other Observations: INDEP GAIT AND TRANSFERS. Sensory deficit: YUAN UE LIGHT TOUCH SENSATION IS GROSSLY INTACT AND SYMMETRICAL. ROM deficit: YUAN UE ROM WFL. Motor deficit: RIGHT HAND DOMINANT WITH R 55 LBS AND L 45 LBS. YUAN UE STRENGTH GROSSLY 5/5 WITH MMT'ING. Reflexes: NT. Dural Signs: NEGATIVE YUAN UE'S. Cervical Mvmt Loss: Flex: NIL. Pro: NIL. Ext: MIN. Ret: MOD. RSB: MOD TO OMAIRA. LSB: MOD. R Rot: MOD. L Rot: MIN. PATIENT C/O INCREAED NECK PAIN AT THE END OF THE AVAILABLE ROM INTO FLEX, EXT AND RETRACTION. Postural strength: FAIR. Palpation: NO ACUTE TENDERNESS WITH PALPATION OF CERVICAL SPINE, OCCIPUT OR YUAN SHLDS BUT INCREASED MUSCLE TONE/GUARDING THROUGHOUT. OTHER: SEATED CERVICAL DISTRACTION TESTING - NE. TREATMENT: NEUROMUSCULAR REEDUCATION - RETRAINING OF MVMT AND POSTURE FOR SITTING, LYING AND STANDING ACTIVITIES. INSTRUCTION IN PROPER WORK STATION SET UP. ADVISED AVOIDING READING AND WATCHING TV IN BED. ENCOURAGED USE OF LUMBAR SUPPORT IN SITTING, FREQUENT BREAKS FROM SITTING AND PERIODIC LYING DOWN DURING THE DAY. - Balance/Special Test Scores Oswestry Neck Score: 11 - Goals Goal 1:: DECREASE C/O NECK AND YUAN UE SX'S. Goal Time Frame: 4-6 Weeks Goal 2:: IMPROVE WORK, LIFTING, READING, DRIVING AND RECREATIONAL FUNCTION Goal Time Frame: 4-6 Weeks Goal 3:: INSTRUCT IN PROPHYLAXIS Goal Time Frame: 4-6 Weeks - Anticipated Interventions Patient/Client Instruction: Educate patient on: Condition, Plan of Care, Risk Factors For the Purpose of:: To improve self management Therapeutic Exercise to Include: Strength training, Body mechanics, Postural training, Flexibilty training, Neuromotor development, Scapular Strength/Stabilization For the Purpose of:: To decrease pain, To increase ROM, To increase oxygenation perfusion, To increase tolerance to activity/condition/position, To improve ability of physical actions for home/community/work/leisure TENS: Yes IF ES: Yes Cryotherapy (ice pack, ice massage): Yes Thermo therapy (hot pack): Yes Ultrasound (thermal/non thermal): Yes For the Purpose of:: To decrease pain, To improve nutrient delivery to tissue Thank you for the opportunity to evaluate your patient. For Medicare and Medicare HMO plans, please review the plan of care and approve it. It will need to be FAXED BACK to us at [phone] for Medicare purposes. For Medicare only, by signing this I certify the plan of care. Please let me know if there are questions or concerns regarding this plan of care. Physician Signature: Date:
--- NOTE | 2022-07-12 09:57 | HP.PTREVAL_ITS ---
Dr. Irving Claudio MD, It has been my pleasure to treat DIANNA SENIOR over the last 6 visits for NECK PAIN, YUAN HIP PAIN, L HIP TIGHTNESS AND R SI JT PAIN.. Please see the progress note below for an update on the physical therapy plan of care! Subjective: PATIENT REPORTS NEW ONSET CHEST MUSCLE PAIN FOR NO APPARENT REASON OTHER THAN MAYBE ALL THE REPAIRS SHE IS DOING AT HOME OR THE THERABAND EX'S. REPORTS COMPLIANCE WITH HEP AND FEELING GOOD AFTER TRACTION LAST SESSION. LOW BACK: C/O CHRONIC LBP FOR YEARS. YOGA SEEMS TO HAVE HELPED THAT BUT GOT OUT OF THE HABBIT OF DOING IT. WE DECIDED TO ADDRESS HER LOW BACK TODAY BUT PATIENT STARTED TO CRY AND STATES MY LBP HURTS ALL THE TIME. I FEEL LIKE MY WHO BODY HURTS ALL THE TIME. ALL OF MY JOINTS HURT. I DON'T GET ANY SLEEP. I AM TOTALLY EXHAUSTED. PATIENT IS CRYING SHE REPORTS THESE THINGS. SHE STATES THAT HER NECK PAIN ON TOP OF HER CHRONIC LBP IS OVERWHELMING. I AM IN PAIN ALL THE TIME . SHE REPORTS SHE HAS REACHED OUT TO DR. CLAUDIO ABOUT ALL OF THESE THINGS AND PLANS TO SCHEULE A FOLLOW UP WITH HIM SOON POSSIBLE. WANTS TO CONTINUE PT ABLE RIGHT NOW TOO. LOW BACK: NO SPINE SURGERY. NO LUMBAR PAIN MGMT/ANNIE'S. HAS SEEN CHIROPRACTOR NEEDED OVER THE YEARS FOR NECK AND LOW BACK. LAST CHIROPRACTIC VISIT WAS ABOUT 2 MONTHS AGO AND IT WAS HELPFUL. LOW BACK RANGES 2-6/10. HAS HAD IMAGING OF LOW BACK SHOWING DDD. PATIENT REPORTS INTERMITTENT YUAN LE PAIN BUT NOT DAILY. PATIENT DENIES LOSS OF BOWEL AND BLADDER CONTROL. Objective/Function: PATIENT TEARFUL TODAY REPORTING HAVING PAIN ALL OVER BUT AFTER LUMBAR ASSESSMENT AND EX SHE LEFT MUCH CALMER WITH A PLAN FOR AQUATIC THERAPY AND TO FOLLOW UP WITH DR. CLAUDIO. Plan Plan: AQUATIC THERAPY ONCE A WEEK AND LAND PT ONCE A WEEK: FOCUS ON CORE STABILITY AND POSTURAL CORRECTION AND STRENGTHENING ALONG WITH GENERAL JOINT PAIN RELIEF. NECK US, E-STIM, MH. CERVICAL TRACTION. POSTURE CORRECTION/STRENGTHENING, INSTRUCTION IN APPROPRIATE BODY MECHANICS AND ACTIVITY MODIFICATIONS. YUAN UE ROM, STRETCHING AND STRENGTHENING. HEP INSTRUCTION. Balance/Gait/Functional tests - Balance/Special Test Scores Oswestry Neck Score: 11 Goals Goal 1:: DECREASE C/O NECK AND YUAN UE SX'S. Goal Time Frame: 4-6 Weeks Goal 2:: IMPROVE WORK, LIFTING, READING, DRIVING AND RECREATIONAL FUNCTION Goal Time Frame: 4-6 Weeks Goal 3:: INSTRUCT IN PROPHYLAXIS Goal Time Frame: 4-6 Weeks Anticipated Interventions Patient/Client Instruction: Educate patient on: Condition, Plan of Care, Risk Factors For the Purpose of:: To improve self management Therapeutic Exercise to Include: Strength training, Body mechanics, Postural training, Flexibilty training, Neuromotor development, Scapular Strength/Stabilization For the Purpose of:: To decrease pain, To increase ROM, To increase oxygenation perfusion, To increase tolerance to activity/condition/position, To improve ability of physical actions for home/community/work/leisure TENS: Yes IF ES: Yes Cryotherapy (ice pack, ice massage): Yes Thermo therapy (hot pack): Yes Ultrasound (thermal/non thermal): Yes For the Purpose of:: To decrease pain, To improve nutrient delivery to tissue Please do not hesitate to contact me at [phone] by phone or if you have questions or concerns regarding this new plan of care! Sincerely, Dunia Vogel, PT, Cert MDT
--- NOTE | 2022-11-14 18:51 | HP.PT.NRP ---
DIANNA SENIOR was seen in my office for initial evaluation on 06/09/22. The following Plan of Care was established for this patient: Initial Frequency: 1-2x /Week Initial Duration: 16 VISITS Patient/Client Instruction: Educate patient on: Condition, Plan of Care, Risk Factors For the Purpose of:: To improve self management Therapeutic Exercise to Include: Strength training, Body mechanics, Postural training, Flexibilty training, Neuromotor development, Scapular Strength/Stabilization For the Purpose of:: To decrease pain, To increase ROM, To increase oxygenation perfusion, To increase tolerance to activity/condition/position, To improve ability of physical actions for home/community/work/leisure TENS: Yes IF ES: Yes Cryotherapy (ice pack, ice massage): Yes Thermo therapy (hot pack): Yes Ultrasound (thermal/non thermal): Yes For the Purpose of:: To decrease pain, To improve nutrient delivery to tissue This patient was last seen in our office 07/28/22. Pertinent comments regarding their Physical therapy will appear below: This patient has not returned to Physical Therapy and is appropriate to return to MD for further follow-up as needed. At this point I will be discontinuing this patient from physical therapy. I would be happy to see this patient again in the future if found appropriate by the physician. Thank you! Dunia Vogel, PT, Cert MDT Balance/Gait/Functional tests - Balance/Special Test Scores Oswestry Neck Score: 11
== END 2022-07-28 19:00 | disposition home or self-care (01) ==
LOC: PT 09:30
PROVIDERS: PCP Family Medicine; Referring Provider Family Medicine; Visit Provider Family Medicine
DX: M54.2 Cervicalgia (principal); M25.551 Pain in right hip; M25.552 Pain in left hip; M53.3 Sacrococcygeal disorders, not elsewhere classified; M25.652 Stiffness of left hip, not elsewhere classified
CPT/HCPCS: 97012; 97035; 97112; 97113; 97162; 97530

== ENCOUNTER → 2024-01-25 | Outpatient (CLI) | payer BC, SELFPAY ==
[2024-01-25 17:37] LABS: Absolute Lymphocyte Count 1.82 X10^3/uL (0.83-4.51); Absolute Neutrophil Count 3.5 X10^3/uL (2.0-7.7); Basophil# 0.03 X10^3/uL; Basophil% 0.5 % (0-1); Eosinophil# 0.07 X10^3/uL; Eosinophils% 1.2 % (0-5); Hematocrit 37.5 % (37-47); Hemoglobin 12.5 g/dL (12.0-15.0); Lymphocyte # 1.82 X10^3/ul (0.83-4.51); Lymphocyte % 31.5 % (19-41); Mean Corp Hgb Conc 33.3 g/dL (32-36); Mean Corpuscular Hgb 31.3 pg (27.0-32.0); Mean Corpuscular Volume 93.8 fL (81-99); Mean Platelet Vol. 10.1 fl (6.2-12.0); Monocyte# 0.31 X10^3/uL; Monocyte% 5.4 % (0-10); NRBC Flagged by Analyzer 0 % (0-5); Neutrophil # 3.53 X10^3/uL (2.7-7.7); Neutrophil % 61.1 % (47-70); Platelet Count 294 K/mm3 (150-450); RBC Distribution Width CV 12.3 % (11.6-14.6); RBC Distribution Width SD 42.7 fl (35.1-43.9); White Blood Count 5.8 K/mm3 (4.4-11.0)
[2024-01-25 18:28] LABS: Vitamin D,25 Hydroxy 25.8 ng/mL
[2024-01-25 19:00] LABS: AST(SGOT) 12 U/L (15-37); Alanine Aminotransfer ALT/SGPT 18 U/L (13-56); Albumin, Serum 3.8 g/dL (3.2-5.0); Alkaline Phosphatase 76 U/L (45-117); Anion Gap 9 (5-15); BUN 11 mg/dL (7-18); BUN/Creat Ratio 13.1 RATIO (10-20); CRP < 2.90 mg/L (0.0-3.0); Calcium,Total 9.3 mg/dL (8.5-10.1); Chloride 110 mmol/L (98-107); Cholesterol 209 mg/dL (200); Creatinine, Serum 0.84 mg/dL (0.55-1.02); EST Glomerular Filtration Rate 74 mL/min (>60); Est Glom Filt Rate - Afr Amer 89 mL/min (>60); Globulin 3.7 g/dL (2.2-4.2); Glucose 108 mg/dL (74-106); High Density Lipoprotein 71 mg/dL; Potassium 3.9 mmol/L (3.5-5.1); Protein, Total 7.5 g/dL (6.4-8.2); Sodium Level 142 mmol/L (136-145); Triglycerides 108 mg/dL; Very Low Density Lipoprotein 22 mg/dL (5-40)
== END | disposition home or self-care (01) ==
PROVIDERS: PCP Family Medicine; Referring Provider Family Medicine; Visit Provider Family Medicine
DX: Z13.220 Encounter for screening for lipoid disorders (principal); E55.9 Vitamin D deficiency, unspecified; M25.50 Pain in unspecified joint
CPT/HCPCS: 36415; 80053; 80061; 82306; 85025; 86140

== ENCOUNTER 2024-02-05 05:23 | Day surgery (SDC) | payer BC, SELFPAY ==
[2024-02-05] VITALS (7 sets, daily range): BP systolic 106–113; BP diastolic 80–90; PULSE 72–83; RESP 16; TEMP 36.1–36.9; O2SAT 97–98; BMI 26.5
--- NOTE | 2024-02-05 | COLBX_PTH ---
PATIENT: DIANNA SENIOR LOC: EN U#:[id number] AGE/SX: 58/F ROOM: RE02/05/[address]: Dr. Jairo Zuluaga DO : 1965 BED: DIS: 02/05/2024 SPEC #: [id number] RECD: 02/05/24 13:30 STATUS: VANESSA GRUPO #: [id number] AVTAR: 02/05/24 00:[address]: Jairo Zuluaga DEPT: SURGICAL PATHOLOGY RECD BY: Peter Pacheco ENTERED: 02/06/24 09:43 SP TYPE: COLON BX OTHR DR: Dr. Irving Claudio MD Tissues: A - Cecum, NOS B - Transverse colon Procedures: Surgery Specimen Level IV HEADER OPERATION: Colonoscopy with polypectomy PRE-OP DIAGNOSIS: Screening TISSUE SUBMITTED: A- Cecal cap polyp, B- Transverse polyp MICROSCOPIC DIAGNOSIS A. Cecal cap polyp, polypectomy: Fragments of hyperplastic polyp. Fragments of fecal material. B. Transverse colon polyp, polypectomy: Tubular adenoma. Fragments of fecal material. See comment. / 02/07/2024 COMMENT B. The specimen predominantly consists of fecal material. MICROSCOPIC DESCRIPTION Slides are reviewed. GROSS DESCRIPTION A. Received in fixative is one container labeled with the patient's name and designated Cecal cap polyp. The specimen consists of multiple irregular fragments of light arteaga soft tissue that in aggregate measure 2.0 x 2.0 x 0.2 cm. The specimen is totally submitted in one cassette. B. Received in fixative is one container labeled with the patient's name and designated Transverse polyp. The specimen consists of multiple irregular fragments of light arteaga soft tissue that in aggregate measure 2.5 x 0.5 x 0.1 cm. The specimen is totally submitted in one cassette. AM. 02/06/2024 TC:1 CPT:13565a1
[2024-02-05] MEDS: Lactated Ringers 1,000 ML 15 ML IV (05:54)
--- NOTE | 2024-02-05 06:32 | PRE.ANES_ITS ---
ASA Classification* ASA Classification ASA Classification: 2 Assessment & Plan Anesthesia* Anesthesia Assessment Anesthesia Assessment: Discussed sedation and/or anesthesia options, risks, benefits, and alternatives with patient/parents/legal guardian/POA. Questions invited. The patient/parents/legal guardian/POA seems to understand and agrees to proceed with anesthesia plan. Reviewed the physical assessment, medical history, allergy history and patient home medications list prior to surgery/procedure/anesthetic and documented any changes. Performed airway and anesthesia risk assessments. Anesthesia Type Anesthesia Type: MAC History Source History Obtained from:: Patient and Chart Anesthesia Focused Assessment* Temperature: 98.5 F Pulse Rate: 83 Blood Pressure: 113/90 Respiratory Rate: 16 Pulse Ox: 98 Airway Assessment Mouth opens: >3 cm Mallampati Score: II Teeth Condition: Intact Neck Range of motion (ROM): Full ROM Focused Labs Anesthesia Preop lab: CBC WBC 5.8 K/mm3 (4.4-11.0) 01/25/24 14:24 RBC 4.00 M/mm3 (4.2-5.4) L 01/25/24 14:24 Hgb 12.5 g/dL (12.0-15.0) 01/25/24 14:24 Hct 37.5 % (37-47) 01/25/24 14:24 Plt Count 294 K/mm3 (150-450) 01/25/24 14:24 CHEMISTRY Potassium 3.9 mmol/L (3.5-5.1) 01/25/24 14:24 Sodium 142 mmol/L (136-145) 01/25/24 14:24 BUN 11 mg/dL (7-18) 01/25/24 14:24 Creatinine 0.84 mg/dL (0.55-1.02) 01/25/24 14:24 Glucose 108 mg/dL (74-106) H 01/25/24 14:24 TSH 1.40 uIU/mL (0.358-3.74) 03/24/22 09:02 COAG Urine Test Negative Negative 04/04/18 07:38 Pre-Assessment Diagnosis/Proposed Procedure Planned Operative Procedure(s): CSCOPE Anesthesia History 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 When Was Last Pacemaker Check QUESTION #4 FULL TEXT: You/Your Family Experience fever (hyperthermia) with Anesthesia Last Oral Intake Last Oral intake: Last Oral Intake NPO since 02:30 02/05/24 05:51 Meds taken in AM with sips of No 02/05/24 05:51 water? 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 Female Yes 02/02/24 09:51 HX of Motion Sickness No 02/02/24 09:51 HX of N/V After Surgery No 02/02/24 09:51 Non-Smoker Yes 02/02/24 09:51 Duration of Surgery greater No 02/02/24 09:51 than 60 minutes Number of Risk Factors 2 02/02/24 09:51 PONV Score Moderate Risk 02/02/24 09:51 Height & Weight Height & Weight: Anesthesia: Height & Weight Height 5 ft 8 in 02/05/24 05:51 Weight: 79.1 kg 02/05/24 05:51 Body Mass Index (BMI) 26.5 02/05/24 05:51 Respiratory Assessment Respiratory Assessment - jewelry making instructor: Respiratory Tract Infection Hx - jewelry making instructor Hx Respiratory Tract Infection No 02/02/24 09:51 STOP Sleep Apnea STOP Sleep Apnea - jewelry making instructor: STOP Sleep Apnea - jewelry making instructor Hx Hypertension No 02/02/24 09:51 Hx Sleep Apnea No 02/02/24 09:51 CPAP BIPAP Do you snore loudly (louder No 02/02/24 09:51 than talking or can be heard Do you often feel tired/ No 02/02/24 09:51 fatigued/ sleepy during daytime? Has anyone observed you stop No 02/02/24 09:51 breathing during sleep? STOP Results Negative 02/02/24 09:51 QUESTION #5 FULL TEXT : Do you snore loudly (louder than talking or can be heard through closed doors)? 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 Specify any problems Hx of Preganancy in last 3 N/A 02/02/24 09:51 Months Nurse Filling Out Transfusion NBUCHER 02/02/24 09:51 & Questions: Date: 02/02/24 02/02/24 09:51 Time: 09:51 02/02/24 09:51 Patient unable to answer at this time (ie. 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: /Reproductive Hx- jewelry making instructor Hx Now No 02/02/24 09:51 Gestational Age (in weeks): EDC: Hx Hx Para Hx Section SAB No 02/02/24 09:51 Active Medications Active Medications: Current Medications Generic Name Dose Route Start Last Admin Trade Name Chanda PRN Reason Stop Dose Admin Lactated Ringer's 1,000 mls @ 15 mls/hr 02/05/24 05:45 02/05/24 05:54 IV 15 mls/hr .Q48H MARY Administration PFSH Medical History Wears glasses Restless legs Migraine headache Former smoker Hx of colonic polyp Home Medications ?Medication ?Instructions ?Recorded ?Last Taken ?Type NK 02/02/24 Unknown History Allergy/AdvReac Type Severity Reaction Status Date / Time No Known Allergies Allergy Verified 02/05/24 05:50 Surgical History Hx of colonoscopy Social History household members: spouse current occupational status: employed current occupation: [employer] history of recent travel: Yes ([place] for past year, returned 12-15-23) out of country: Yes Smoking Status: Former smoker substance use type: does not use Review of Systems (Anesthesia) ROS Narrative System reviewed and no additional complaints, except as documented.
--- NOTE | 2024-02-05 06:45 | HP.PCM_ITS ---
[facility] - General General Date of Admission: 02/05/24 Date of Service: 02/05/24 Chief Complaint: Screening: Skippy HPI Narrative DIANNA SENIOR, is a 58 F who presents today for screening colonoscopy. She had a colonoscopy approximately 10 to 11 years ago. She is not having abdominal pain. She did have any cramping. She takes no medicines on a daily basis. [facility] Medical History Wears glasses Restless legs Migraine headache Former smoker Hx of colonic polyp Home Medications ?Medication ?Instructions ?Recorded ?Last Taken ?Type NK 02/02/24 Unknown History Allergy/AdvReac Type Severity Reaction Status Date / Time No Known Allergies Allergy Verified 02/05/24 05:50 Surgical History Hx of colonoscopy Social History household members: spouse current occupational status: employed current occupation: [employer] history of recent travel: Yes ([facility] for past year, returned 12-15-23) out of country: Yes Smoking Status: Former smoker substance use type: does not use ROS Review of Systems ROS Unobtainable: other Constitutional Constitutional: Denies fatigue, fever(s), poor appetite, weight gain or weight loss ENT HEENT: Denies mouth lesions Cardiovascular Cardiovascular: Denies abdominal bloating, abdominal edema or abdominal pain Respiratory/Chest Respiratory/Chest: Denies change in mental status, change in phlegm color, chest congestion or chest tightness Gastrointestinal Gastrointestinal: Denies belching, bloating, change in bowel habits, change in stool character, chewing difficulty, coffee ground emesis, constipation, cramping, diarrhea, dyspepsia, dysphagia, early satiety, excessive flatus, fecal incontinence, heartburn, hematemesis, hematochezia, hemorrhoids, loose stools, melena, nausea, odynophagia, rectal bleeding, tenesmus, vomiting or weight changes Genitourinary Genitourinary: Denies abdominal discomfort, burning urination or itching Musculoskeletal Musculoskeletal: Reports as per HPI; Denies muscle weakness or myalgias Integumentary Integumentary: Denies jaundice Neurologic Neurologic: Denies lack of coordination or weakness Psychiatric Psychiatric: Denies confusion, depression, memory loss, mood swings, paranoia or suicidal ideation Endocrine Endocrinology: Denies systems reviewed and no addt'l complaints, except as documented Hematologic/Lymphatic Hematologic/Lymphatic: Denies anemia, easy bleeding, easy bruising or lymphadenopathy Allergic/Immunologic Allergic/Immunologic: Denies systems reviewed and no addt'l complaints, except as documented Vital Signs Vital Signs Vital Signs: 02/05/24 05:51 02/05/24 06:32 Temperature 98.5 F 98.5 F Temperature Source Temporal Pulse Rate 83 83 Respiratory Rate 16 16 Blood Pressure 113/90 H 113/90 H Blood Pressure Mean 97 Blood Pressure Source Monitor Blood Pressure Position Semi-Fowlers Blood Pressure Location Left Arm Pulse Ox 98 98 Oxygen Delivery Method Room Air Weight Weight: 174 lb 6.17 oz Body Mass Index (BMI) 26.5 Physical Exam Const alert General Appearance: cooperative Orientation / Consciousness: oriented to person HEENT hearing grossly normal bilaterally Head and Scalp: normal to inspection Face and Sinus: face symmetric Nose: external nose normal Mouth: oral and palatal mucosa normal Eyes conjunctivae normal General Eye: normal appearance of both eyes Neck full ROM General: normal visual inspection Lymph Lymphatic: no lymphadenopathy noted Chest inspection of chest normal and palpation of chest normal Chest: symmetrical chest wall rise Resp normal respiratory effort Effort and Inspection: able to speak in complete sentences Cardio regular rate GI non-distended Percussion: normal to percussion Rectal Exam: deferred Neuro Speech: speech normal Gait (Neuro): normal gait Assessment & Plan Assessment/Plan (1) Encounter for screening for malignant neoplasm of colon: PLAN: She was explained alternatives, risk, benefits include understanding bleeding, infection, sepsis, perforation, need for emergent urgent . She have an ASA of 3.
--- NOTE | 2024-02-05 07:15 | OP.CCLET_ITS ---
02/05/2024 Irving Claudio [address] [place] [address] Re : [facility] Dear Dr. Claudio This procedure was performed on Monday, February 05, 2024. My impressions and recommendations are as follows: Impressions : - Preparation of the colon was fair. - One 14 mm polyp in the cecum, removed with a hot snare. Resected and retrieved. - One 8 mm polyp in the transverse colon, removed with a hot snare. Resected and retrieved. - Diverticulosis in the recto-sigmoid colon and in the sigmoid colon. - Stool in the entire examined colon. Recommendations : - Discharge patient to home. - Resume previous diet. - Continue present medications. - Await pathology results. - Repeat colonoscopy in 1 year because the bowel preparation was suboptimal. My findings are described in the full procedure note, which is enclosed. If I can be of further assistance, please feel free to contact me at . Sincerely, Jairo Zuluaga, 02/05/2024 7:14:41 AM This report has been signed electronically.
--- NOTE | 2024-02-05 07:15 | OP.COLON_ITS ---
Patient Name: Isaura Ballesteros Procedure Date: 02/05/2024 6:13 AM Date of : 1965 Age: 58 Procedure: Colonoscopy Indications: Screening for colorectal malignant neoplasm Providers: Jairo Zuluaga DO Medicines: Monitored Anesthesia Care Patient Profile: This is a 58 year old female. Refer to note in patient chart for documentation of history and physical. Last Colonoscopy: more than 10 years ago. Complications: No immediate complications. Procedure: Pre-Anesthesia Assessment: - Prior to the procedure, a History and Physical was performed, and patient medications and allergies were reviewed. The patient is competent. The risks and benefits of the procedure and the sedation options and risks were discussed with the patient. All questions were answered and informed consent was obtained. Patient identification and proposed procedure were verified by the physician in the pre-procedure area. Mental Status Examination: alert and oriented. Airway Examination: normal oropharyngeal airway and neck mobility. Respiratory Examination: clear to auscultation. CV Examination: normal. Prophylactic Antibiotics: The patient does not require prophylactic antibiotics. Prior Anticoagulants: The patient has taken no anticoagulant or antiplatelet agents. ASA Grade Assessment: II - A patient with mild systemic disease. After reviewing the risks and benefits, the patient was deemed in satisfactory condition to undergo the procedure. The anesthesia plan was to use monitored anesthesia care (MAC). Immediately prior to administration of medications, the patient was re-assessed for adequacy to receive sedatives. The heart rate, respiratory rate, oxygen saturations, blood pressure, adequacy of pulmonary ventilation, and response to care were monitored throughout the procedure. The physical status of the patient was re-assessed after the procedure. After I obtained informed consent, the scope was passed under direct vision. Throughout the procedure, the patient's blood pressure, pulse, and oxygen saturations were monitored continuously. The Colonoscope was introduced through the anus and advanced to the cecum, identified by appendiceal orifice and ileocecal valve. The colonoscopy was performed without difficulty. The patient tolerated the procedure well. The quality of the bowel preparation was fair. The ileocecal valve, appendiceal orifice, and rectum were photographed. Scope In: 6:50:24 AM Scope Withdrawal Time 0 hours 13 minutes 34 seconds Scope Out: 7:07:38 AM Total Procedure Duration Time 0 hours 17 minutes 14 seconds Findings: The perianal and digital rectal examinations were normal. A 14 mm polyp was found in the cecum. The polyp was sessile. The polyp was removed with a hot snare. Resection and retrieval were complete. Verification of patient identification for the specimen was done. Estimated blood loss was minimal. To prevent bleeding post-intervention, one hemostatic clip was successfully placed. 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 There was no bleeding at the end of the procedure. An 8 mm polyp was found in the transverse colon. The polyp was sessile. The polyp was removed with a hot snare. Resection and retrieval were complete. Verification of patient identification for the specimen was done. Estimated blood loss was minimal. A few small-mouthed diverticula were found in the recto-sigmoid colon and sigmoid colon. Stool was found in the entire colon. Impression: - Preparation of the colon was fair. - One 14 mm polyp in the cecum, removed with a hot snare. Resected and retrieved. - One 8 mm polyp in the transverse colon, removed with a hot snare. Resected and retrieved. - Diverticulosis in the recto-sigmoid colon and in the sigmoid colon. - Stool in the entire examined colon. Recommendation: - Discharge patient to home. - Resume previous diet. - Continue present medications. - Await pathology results. - Repeat colonoscopy in 1 year because the bowel preparation was suboptimal. Procedure Code(s): --- Professional --- 91058, Colonoscopy, flexible; with removal of tumor(s), polyp(s), or other lesion(s) by snare technique CPT copyright 2021 [employer]. All rights reserved. The codes documented in this report are preliminary and upon reimbursement spec review may be revised to meet current compliance requirements. Jairo Zuluaga DO 02/05/2024 7:14:41 AM This report has been signed electronically. Number of Addenda: 0 Note Initiated On: 02/05/2024 6:13 AM
--- NOTE | 2024-02-05 07:18 | PCM.POST.ANE ---
Anesthesia: Postop Eval I Current Vital Signs Temperature: 97 F Pulse Rate: 81 Blood Pressure: 111/82 Respiratory Rate: 16 Pulse Ox: 97 Oxygen Delivery Method: Room Air Assessment Airway patent: Yes Spontaneous unlabored respirations: Yes Mental status: Asleep nausea: No Vomiting: No Anesthesia Complication: No Fluid Hydration Crystalloid volume administer (ml): 700 Total IV fluid infused: 700 Progress Note Anesthesia document: Postop Eval 1 completed: Yes
--- NOTE | 2024-02-05 08:00 | PCM.POSTANE2 ---
Anesthesia Postop Eval I Sum Postop Eval Completion status Anesthesia document: Postop Eval 1 completed: Yes Anesthesia Postop Eval I Summary Anesthesia Postop Eval I Summary: Anesthesia Postop Eval I: Assessment Summary Airway patent Yes 02/05/24 07:19 [email or web address] Spontaneous unlabored Yes 02/05/24 07:19 [email or web address] respirations Mental status Asleep 02/05/24 07:19 [email or web address] nausea No 02/05/24 07:19 [email or web address] Vomiting No 02/05/24 07:19 [email or web address] Anesthesia Postop Eval I: Fluid Summary Crystalloid volume administer 700 02/05/24 07:19 [email or web address] (ml) Colloids volume administered ( ml) Blood Product volume administered (ml) Total IV fluid infused 700 02/05/24 07:19 [email or web address] Anesthesia Postop Eval I: Summary Notes Anesthesia Complication No 02/05/24 07:19 [email or web address] Anesthesia Complication Comment: Post-operative progress note Anesthesia: Postop Eval II Evaluation Mental status: Awake Pain Level: 0 nausea: No Vomiting: No
== END 2024-02-05 08:00 | disposition home or self-care (01) ==
LOC: EN 05:24 → AC 05:25
PROVIDERS: PCP Family Medicine; Referring Provider Family Medicine; Visit Provider Internal Medicine Gastroenterology
PROC: 0DJD8ZZ Inspection of Lower Intestinal Tract, Via Natural or Artificial Opening Endoscopic (ICD-10-PCS; CPT 45378; principal; 2024-02-05 06:25)
DX: Z12.11 Encounter for screening for malignant neoplasm of colon (principal); D12.0 Benign neoplasm of cecum; D12.3 Benign neoplasm of transverse colon; K57.30 Diverticulosis of large intestine without perforation or abscess without bleeding; Z86.010 Personal history of colon polyps; Z87.891 Personal history of nicotine dependence
CPT/HCPCS: 45385; 88305; J7120; J2405